=== PATIENT | male | born 1955 ===

== ENCOUNTER 2017-10-11 10:37 | Emergency (ER) | payer SELFPAY ==
[2017-10-11 11:16] VITALS: BP 179/100; PULSE 74; RESP 20; TEMP 98.1; O2SAT 98
--- NOTE | 2017-10-11 12:53 | ED PDOC ---
HPI: General Adult Time Seen by Provider: 10/11/17 12:32 Chief Complaint (Nursing): Abnormal Skin Integrity History Per: Patient Additional Complaint(s): Pt. states yesterday at 1530 he sustained a laceration to the L middle finger at work while using a circular saw. Today pt. was unable to stop bleeding and had increased pain prompting ED visit. Denies FB sensation, numbness, tingling. Past Medical History Reviewed: Historical Data, Nursing Documentation, Vital Signs Vital Signs: Last Vital Signs Temp 98.1 F 10/11/17 11:11 Pulse 74 10/11/17 11:11 Resp 20 10/11/17 11:11 BP 179/100 H 10/11/17 11:11 Pulse Ox 98 10/11/17 12:53 - Medical History PMH: HTN - Family History Family History: States: No Known Family Hx - Home Medications Home Medications: Ambulatory Orders Medication Instructions Recorded Cephalexin [cephalexin] 500 mg PO Q6 #28 cap 10/11/17 - Allergies Allergies/Adverse Reactions: Allergies Allergy/AdvReac Type Severity Reaction Status Date / Time No Known Allergies Allergy Verified 10/11/17 11:11 Physical Exam - Physical Exam Appears: Positive for: Well, Non-toxic, No Acute Distress Pulses-Radial (L): 2+ Pulses-Radial (R): 2+ Extremity: Positive for: Normal ROM (L middle finger FROM actively), Other (L middle finger staple shaped 1cm superficial laceration without active bleeding or nail involvement) - ECG O2 Sat by Pulse Oximetry: 98 - Progress ED Course And Treament: Wound irrigated heavily with NS. DSD applied. Disposition - Clinical Impression Clinical Impression: Finger laceration - Patient ED Disposition Is Patient to be Admitted: No - Disposition Referrals: formerly [facility] [Outside] Disposition: Routine/Home Disposition Time: 12:52 Condition: STABLE Additional Instructions: Follow up with [facility] in 2 days for further evaluation. Prescriptions: Cephalexin [cephalexin] 500 mg PO Q6 #28 cap Instructions: Acute Wound Care (ED) Forms: [employer] (F[place]ian), [facility] ED School/Work Excuse Print Language: BAHRAINI
[2017-10-11] MEDS ORDERED: Povidone Iodine Oint 10% Foilpak UD ONE (13:06)
== END 2017-10-11 13:45 | disposition home or self-care (01) ==
LOC: H.ER 10:37
DX: S61.213A Laceration without foreign body of left middle finger without damage to nail, initial encounter (principal); W31.2XXA Contact with powered woodworking and forming machines, initial encounter; Y99.0 Civilian activity done for income or pay; I10 Essential (primary) hypertension